=== PATIENT | male | born 1990 | race Caucasian/White ===

== ENCOUNTER → 2021-06-07 08:21 | Outpatient (CLI) | payer OTHER, SELFPAY ==
--- NOTE | 2021-06-07 | DI.NM.S_ITS ---
PROCEDURE: NM HIDA WITH CCK PHARMACEUTICAL: 5.5 mCi Tc-99m mebrofenin IV; 2.0 mcg CCK IV. INDICATIONS: Right upper quadrant pain TECHNIQUE: Following intravenous administration of Tc-99m mebrofenin, sequential anterior abdominal images were obtained. To evaluate the contractile response of the gallbladder in response to Cholecystokinin (CCK), sincalide (0.02 ?g/kg) was administered by slow intravenous infusion approximately 60 minutes after the administration of the radiopharmaceutical. Sequential imaging was continued for 30 minutes after the start of CCK infusion. Gallbladder ejection fraction was calculated. COMPARISON: None. FINDINGS: Biliary scan: There is normal tracer uptake and excretion by the liver. There is normal visualization of the intrahepatic ducts, common bile duct, and gallbladder. There is normal tracer transit into the duodenum. CCK stimulation: There is normal contractile response of the gallbladder to CCK infusion. The calculated gallbladder ejection fraction is 88%; normal values are above 35%. IMPRESSION: 1. Normal filling of gallbladder. No evidence for acute cholecystitis. 2. Normal contractile response of gallbladder to CCK stimulation. Dictated by: Homar Marcos M.D. on 06/07/2021 at 11:08 Approved by: Homar Marcos M.D. on 06/07/2021 at 11:09
== END ==
PROVIDERS: PCP Family Medicine; Referring Provider Family Medicine; Visit Provider Family Medicine
DX: R10.11 Right upper quadrant pain (principal)
CPT/HCPCS: 78227; A9537; J2805

== ENCOUNTER 2021-09-06 09:33 | Emergency (ER) | payer OTHER, SELFPAY ==
[2021-09-06 09:45] VITALS: PULSE 57; RESP 12; TEMP 36.7; O2SAT 98; BMI 25.7
--- NOTE | 2021-09-06 09:54 | PC.NURSE ---
Patient has had intermittent chest pain for last few years. Patient reports it occurs when drifting off to sleep, body jolts, I wake up feeling pressure in my chest and deprived of air Patient states he has had a sleep study in the past which was normal, however my wakes me up occupationally because I am snoring or stop breathing reports waking never feeling rested. Chest pain does not occur with activity.
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
--- NOTE | 2021-09-06 10:42 | DI.RAD.S_ITS ---
PROCEDURE: XR CHEST 1V INDICATIONS: chest pain, when sleeping TECHNIQUE: One view of the chest was acquired. COMPARISON: None. FINDINGS: Surgical changes and devices: None. Lungs and pleura: No consolidation, pleural effusions or pneumothorax. Mediastinum: Mediastinal contours appear normal. Heart size is normal. Bones and chest wall: No suspicious bony lesions. Overlying soft tissues appear unremarkable. IMPRESSION: No acute cardiopulmonary abnormality. Dictated by: Glenn Sosa M.D. on 09/06/2021 at 10:57 Approved by: Glenn Sosa M.D. on 09/06/2021 at 10:58
[2021-09-06 11:09] LABS: Add Manual Diff / Slide Review NO; Basophils Absolute Auto 100 /uL (0-100); Basophils Percent Auto 0.7 % (0-2); Eosinophils Absolute Auto 200 /uL (0-450); Eosinophils Percent Auto 2.8 % (2-4); Hematocrit 44.3 % (41-53); Hemoglobin 15.7 g/dL (13.5-17.5); Lymphocytes Absolute Auto 2000 /uL (1100-4500); Lymphocytes Percent Auto 25.2 % (25-40); Mean Corpuscular HGB Conc 35.4 % (30-36); Mean Corpuscular Hemoglobin 28.8 PG (26-34); Mean Corpuscular Volume 81.3 fL (80-100); Monocytes Absolute Auto 600 /uL (0-900); Monocytes Percent Auto 7.3 % (3-14); Neutrophils Absolute Auto 5000 /uL (1500-7000); Platelet Count 310 X10^3/uL (150-400); Red Blood Cell Count 5.45 X10^6/uL (4.5-5.9); White Blood Cell Count 7.8 X10^3/uL (4.5-11.0)
[2021-09-06 11:55] VITALS: PULSE 55; RESP 11; O2SAT 98
[2021-09-06 11:56] VITALS: BP 114/65
[2021-09-06 12:39] VITALS: BP 110/79; PULSE 68; RESP 16; O2SAT 99
== END 2021-09-06 12:39 | disposition home or self-care (01) ==
PROVIDERS: Emergency Provider Emergency Medicine; PCP Family Medicine
DX: R07.89 Other chest pain (principal)
CPT/HCPCS: 36415; 71045; 80053; 82550; 82553; 83690; 83880; 84484; 85025; 93005; 93010; 99283; 99284

== ENCOUNTER 2025-01-13 16:54 | Emergency (ER) | payer OTHER, SELFPAY ==
[2025-01-13 16:58] VITALS: BP 143/83; PULSE 66; RESP 14; TEMP 36.8; O2SAT 98; BMI 26.9
--- NOTE | 2025-01-13 17:01 | DI.RAD.S_ITS ---
PROCEDURE: XR RIBS LT MIN 3V W CXR1V INDICATIONS: possible broke rib TECHNIQUE: 2 views of the ribs were acquired, along with a single view chest. COMPARISON: None. FINDINGS: Surgical changes and devices: None. Bones and chest wall: No fractures or dislocations. No suspicious bony lesions. Overlying soft tissues appear unremarkable. Lungs and pleura: No pleural effusions or pneumothorax. Lungs appear clear. Mediastinum: Mediastinal contours appear normal. Heart size is normal. IMPRESSION: No displaced rib fracture or pneumothorax. Dictated by: Mason Witt M.D. on 01/13/2025 at 17:22 Approved by: Mason Witt M.D. on 01/13/2025 at 17:23
== END 2025-01-13 22:18 | disposition left against medical advice (07) ==
PROVIDERS: Emergency Provider Emergency Medicine; PCP Student in an Organized Health Care Education/Training Program
DX: R07.81 Pleurodynia (principal); X58.XXXA Exposure to other specified factors, initial encounter
CPT/HCPCS: 71101; 99281